=== PATIENT | female | born 1945 | race Caucasian/White ===

== ENCOUNTER 2017-06-30 10:38 | Emergency (ER) | payer MEDICARE ==
[~2017-06-30] VITALS: Ht 157.5 cm; Wt 52.8 kg
[~2017-06-30 10:38] MED LIST: ASPI-845 PO; ATOR40TA PO; FURO20TA4 PO; ISOS30TA6 PO; METO-539 PO; NITR0.4T SL; PANT20TA3 PO; POTA10TA36 PO; RANO500T3 PO; ZOL50T PO
[2017-06-30 11:25] LABS: BASOPHILS % (AUTO) 0.3 % (0-1); EOSINOPHILS # (AUTO) 0.4 X10'3 (0-0.9); EOSINOPHILS % (AUTO) 3.8 % (0-6); HEMATOCRIT 38.7 % (35.0-45.0); HEMOGLOBIN 12.6 g/dl (12.0-16.0); LYMPHOCYTES # (AUTO) 1.5 X10'3 (1.1-4.8); LYMPHOCYTES % (AUTO) 14.5 % (21-51); MEAN CORPUSCULAR HEMOGLOBIN 25.4 PG (27.0-31.0); MEAN CORPUSCULAR HGB CONC 32.5 % (33.0-36.5); MEAN CORPUSCULAR VOLUME 78.1 FL (78-98); MEAN PLATELET VOLUME 8.6 FL (7.4-10.4); MONOCYTES # (AUTO) 0.9 X10'3 (0-0.9); MONOCYTES % (AUTO) 8.6 % (2-12); NEUTROPHILS # (AUTO) 7.4 X10'3 (1.8-7.7); NEUTROPHILS % (AUTO) 72.8 % (42-75); PLATELET COUNT 279 X10'3 (140-440); RED BLOOD COUNT 4.95 X10'6 (4.20-5.60); RED CELL DISTRIBUTION WIDTH 16.6 % (11.5-14.5); WHITE BLOOD COUNT 10.2 X10'3 (4.5-11.0)
[2017-06-30 11:35] LABS: PARTIAL THROMBOPLASTIN TIME 27 SECONDS (22-32); PROTHROMBIN TIME 10.5 SECONDS (9.0-12.0)
[2017-06-30 11:40] LABS: ALANINE AMINOTRANSFERASE 40 U/L (12-78); ALBUMIN 3.9 G/DL (3.4-5.0); ALBUMIN/GLOBULIN RATIO 0.8 (1.1-1.5); ALKALINE PHOSPHATASE 108 IU/L (46-116); ANION GAP 10 (8-16); ASPARTATE AMINO TRANSFERASE 38 U/L (10-37); BILIRUBIN,TOTAL 0.7 MG/DL (0.1-1.0); BLOOD UREA NITROGEN 18 MG/DL (7-18); CALCIUM 9.6 MG/DL (8.5-10.1); CHLORIDE 103 MMOL/L (99-107); GLUCOSE 117 MG/DL (70-104); POTASSIUM 3.7 MMOL/L (3.5-5.1); SODIUM 142 MMOL/L (135-145); TOTAL CARBON DIOXIDE 29.2 MMOL/L (24-32); TOTAL PROTEIN 8.5 G/DL (6.4-8.2); eGFR 62 ML/MIN
[2017-06-30] MEDS ORDERED: iohexol 350MG/ML 100ml bottle IV ONE (12:42)
[2017-06-30] MEDS ORDERED: HYDROcodone/acetaminophen 5mg/325mg tablet PO ONE (17:35)
[2017-06-30 18:41] LABS: CLARITY,URINE CLEAR (Clear); COLOR,URINE YELLOW (Yellow); GLUCOSE, URINE NEGATIVE (Neg); KETONES,URINE NEGATIVE (Neg); LEUKOCYTE ESTERASE ,URINE NEGATIVE (Neg); NITRITES, URINE NEGATIVE (Neg); OCCULT BLOOD,URINE NEGATIVE (Neg); PH,URINE 5.5 (4.8-8.0); PROTEIN,URINE NEGATIVE (Neg)
[2017-06-30 18:46] LABS: UA COLLECTION TYPE CLN CATCH MIDSTREAM
[2017-06-30 19:20] VITALS: BP 129/58
== END 2017-06-30 19:19 | disposition home or self-care (01) ==
LOC: ER 10:39
DX: R07.89 Other chest pain (principal); R10.31 Right lower quadrant pain; R10.32 Left lower quadrant pain; R06.02 Shortness of breath; I25.10 Atherosclerotic heart disease of native coronary artery without angina pectoris; E78.00 Pure hypercholesterolemia, unspecified; I10 Essential (primary) hypertension; I25.2 Old myocardial infarction; F12.10 Cannabis abuse, uncomplicated; Z98.62 Peripheral vascular angioplasty status; Z95.1 Presence of aortocoronary bypass graft; Z79.82 Long term (current) use of aspirin; Z79.899 Other long term (current) drug therapy
CPT/HCPCS: 36415; 71045; 71275; 74174; 80053; 81003; 84484; 85025; 85610; 85730; 93005; 99285; J7030; Q9967

== ENCOUNTER 2018-10-16 07:56 | Inpatient (IN) | payer MEDICARE ==
[~2018-10-16] VITALS: Ht 160 cm; Wt 57.6 kg
[2018-10-16] MEDS ORDERED: aspirin 81mg tab.chew PO ONE (08:00)
--- NOTE | 2018-10-16 08:17 | NUR ---
radiology at bedside for chest xray now per orders
[2018-10-16 08:28] LABS: BASOPHILS % (AUTO) 0.5 % (0-1); EOSINOPHILS # (AUTO) 0.2 X10'3 (0-0.9); EOSINOPHILS % (AUTO) 2.2 % (0-6); HEMATOCRIT 35.7 % (35.0-45.0); HEMOGLOBIN 11.7 g/dl (12.0-16.0); LYMPHOCYTES # (AUTO) 1.5 X10'3 (1.1-4.8); LYMPHOCYTES % (AUTO) 16.6 % (21-51); MEAN CORPUSCULAR HEMOGLOBIN 25.6 PG (27.0-31.0); MEAN CORPUSCULAR HGB CONC 32.9 g/dL (33.0-36.5); MEAN PLATELET VOLUME 8.8 FL (7.4-10.4); MONOCYTES # (AUTO) 0.8 X10'3 (0-0.9); MONOCYTES % (AUTO) 8.6 % (2-12); NEUTROPHILS # (AUTO) 6.5 X10'3 (1.8-7.7); NEUTROPHILS % (AUTO) 72.1 % (42-75); PLATELET COUNT 207 X10'3 (140-440); RED BLOOD COUNT 4.58 X10'6 (4.20-5.60); RED CELL DISTRIBUTION WIDTH 15.4 % (11.5-14.5); WHITE BLOOD COUNT 9.1 X10'3 (4.5-11.0)
[2018-10-16] MEDS ORDERED: ASPI-611 PO (08:43)
[2018-10-16] MEDS ORDERED: UBID100C16 PO (08:43)
[2018-10-16] MEDS ORDERED: ATOR80TA PO (08:43)
[2018-10-16 08:44] LABS: ALANINE AMINOTRANSFERASE 21 U/L (12-78); ALBUMIN 3.6 G/DL (3.4-5.0); ALBUMIN/GLOBULIN RATIO 1.1 (1.1-1.5); ALKALINE PHOSPHATASE 135 IU/L (46-116); ANION GAP 10 (8-16); ASPARTATE AMINO TRANSFERASE 17 U/L (10-37); BILIRUBIN,TOTAL 0.5 MG/DL (0.1-1.0); BLOOD UREA NITROGEN 20 MG/DL (7-18); BUN/CREATININE RATIO 24.1 (6.6-38.0); CALCIUM 8.5 MG/DL (8.5-10.1); CHLORIDE 106 MMOL/L (99-107); CREATININE 0.83 MG/DL (0.40-0.90); GLUCOSE 104 MG/DL (70-104); POTASSIUM 3.7 MMOL/L (3.5-5.1); SODIUM 140 MMOL/L (135-145); TOTAL CARBON DIOXIDE 24.5 MMOL/L (24-32); eGFR 68 ML/MIN
--- NOTE | 2018-10-16 08:45 | NUR ---
DR MARTINEZ NOTIFIED OF PT ANXIETY, ORDERS TO FOLLOW.
[2018-10-16 08:55] LABS: MAGNESIUM 1.7 MG/DL (1.5-2.4)
[2018-10-16] MEDS ORDERED: LORazepam 0.5 MG tablet PO PRN (08:55)
--- NOTE | 2018-10-16 09:49 | NUR ---
PT IS SLEEPING ON LEFT SIDE, RESPIRATIONS SPONTANEOUS, EVEN AND UNLABORED, NO S/S OF PAIN OR DISTRESS, PT AWAITING HOSPITALIST EVALUATION FOR ADMISSION AT THIS TIME.
--- NOTE | 2018-10-16 09:58 | NUR ---
PT AMBULATORY TO THE BATHROOM WITH STEADY GAIT PER REQUEST, PT PROVIDING URINE SAMPLE TO SEND TO LAB IF NEEDED.
[2018-10-16] MEDS ORDERED: potassium Cl 20 mEq SR tablet PO PRN ×2 (10:20)
[2018-10-16] MEDS ORDERED: magnesium Cl slow-release 64mg tablet PO PRN (10:20)
[2018-10-16] MEDS ORDERED: magnesium 4gm in 100ml NS 100 ML IV PRN (10:20)
[2018-10-16] MEDS ORDERED: ondansetron/PF 4mg/2ml inj IV PRN (10:20)
[2018-10-16] MEDS ORDERED: morphine 2 MG/ML inj. syringe IV PRN (10:20)
[2018-10-16] MEDS ORDERED: potassium Cl 40MEQ/NS 500ml 500 ML IV PRN ×2 (10:20)
[2018-10-16] MEDS ORDERED: magnesium 2GM in 50ml NS 50 ML IV PRN (10:20)
--- NOTE | 2018-10-16 11:13 | NUR ---
received report from Eda in the ER. Pt is stable and A & O x3
[2018-10-16] MEDS ORDERED: MELA3TAB PO (11:19)
--- NOTE | 2018-10-16 11:46 | NUR ---
Patient in room [facility]. I have received report from Shirley CARRANZA and had the opportunity to ask questions and assume patient care.
[2018-10-16 11:54] VITALS: BP 140/79
[2018-10-16] MEDS ORDERED: metoprolol tartrate 1mg/ml inj IV PRN (13:45)
[2018-10-16] MEDS ORDERED: nitroGLYCERIN 0.4mg SUBLingual tab SL PRN ×2 (13:45→13:50)
[2018-10-16] MEDS ORDERED: aminophylline 250mg/10ml inj. IV PRN (13:45)
[2018-10-16] MEDS ORDERED: regadenoson 0.4mg/5ml syringe IV PRN (13:45)
[2018-10-16] MEDS: sertraline 50mg tablet PO SCH (14:48)
[2018-10-16] MEDS: furosemide 20MG tablet PO SCH (14:48)
[2018-10-16] MEDS: metoprolol succinate 25mg (24-HOUR) SR. Tablet PO SCH (14:49)
--- NOTE | 2018-10-16 18:15 | NUR ---
Received report from TERE Saucedo. Patient is awake and alert on room air, in no apparent distress. Call light and items of frequent use within reach. Will continue to monitor.
--- NOTE | 2018-10-16 18:29 | NUR ---
Problems reprioritized. Patient report given, questions answered & plan of care reviewed with jerrod CARRANZA. restful shift for patient no report of chest pain. VSS.
[2018-10-16] MEDS: heparin, porcine 5000 units/ml vial SQ SCH (19:35)
[2018-10-16 20:00] VITALS: BP 119/68
[2018-10-16] MEDS: atorvastatin 20mg tablet PO SCH (20:44)
[2018-10-16] MEDS: Melatonin 3mg tablet PO SCH (20:47)
[2018-10-16] MEDS ORDERED: non-formulary drug (Atorvastatin Calcium* (Lipitor*) 1 TABLET) PO SCH (21:00)
[2018-10-17] VITALS (17 sets, daily range): BP systolic 123–205; BP diastolic 64–114
[2018-10-17 04:55] LABS: BASOPHILS % (AUTO) 0.6 % (0-1); EOSINOPHILS # (AUTO) 0.3 X10'3 (0-0.9); EOSINOPHILS % (AUTO) 3.6 % (0-6); HEMATOCRIT 33.3 % (35.0-45.0); LYMPHOCYTES # (AUTO) 1.5 X10'3 (1.1-4.8); LYMPHOCYTES % (AUTO) 20.4 % (21-51); MEAN CORPUSCULAR HEMOGLOBIN 25.7 PG (27.0-31.0); MEAN CORPUSCULAR HGB CONC 33.1 g/dL (33.0-36.5); MEAN CORPUSCULAR VOLUME 77.6 FL (78-98); MEAN PLATELET VOLUME 9.2 FL (7.4-10.4); MONOCYTES # (AUTO) 0.7 X10'3 (0-0.9); MONOCYTES % (AUTO) 10.1 % (2-12); NEUTROPHILS # (AUTO) 4.7 X10'3 (1.8-7.7); NEUTROPHILS % (AUTO) 65.3 % (42-75); PLATELET COUNT 182 X10'3 (140-440); RED BLOOD COUNT 4.29 X10'6 (4.20-5.60); RED CELL DISTRIBUTION WIDTH 15.4 % (11.5-14.5); WHITE BLOOD COUNT 7.3 X10'3 (4.5-11.0)
[2018-10-17 05:05] LABS: ALBUMIN 3.2 G/DL (3.4-5.0); ANION GAP 7 (8-16); BLOOD UREA NITROGEN 19 MG/DL (7-18); BUN/CREATININE RATIO 28.8 (6.6-38.0); CALCIUM 8.7 MG/DL (8.5-10.1); CHLORIDE 106 MMOL/L (99-107); CREATININE 0.66 MG/DL (0.40-0.90); GLUCOSE 101 MG/DL (70-104); MAGNESIUM 1.9 MG/DL (1.5-2.4); POTASSIUM 3.7 MMOL/L (3.5-5.1); SODIUM 140 MMOL/L (135-145); TOTAL CARBON DIOXIDE 26.9 MMOL/L (24-32); eGFR 88 ML/MIN
--- NOTE | 2018-10-17 06:35 | NUR ---
Patient in room [facility]. I have received report from TERE Calloway and had the opportunity to ask questions and assume patient care.
--- NOTE | 2018-10-17 06:36 | NUR ---
Problems reprioritized. Patient report given, questions answered & plan of care reviewed with TERE Ng.
[2018-10-17] MEDS: K and/or MAG REPLACEMENT MC SCH (07:46)
[2018-10-17] MEDS: furosemide 20MG tablet PO SCH (07:47)
[2018-10-17] MEDS: metoprolol succinate 25mg (24-HOUR) SR. Tablet PO SCH (07:47)
[2018-10-17] MEDS: pantoprazole 40mg Tablet.DR PO SCH (07:53)
[2018-10-17] MEDS: aspirin 81mg tablet.DR PO SCH (07:54)
[2018-10-17] MEDS: potassium chloride 10mEq ER tablet PO SCH (07:54)
[2018-10-17] MEDS: sertraline 50mg tablet PO SCH (07:55)
[2018-10-17] MEDS ORDERED: non-formulary drug (Aspirin (Aspir 81) 1 TAB) PO SCH (08:00)
[2018-10-17] MEDS ORDERED: POTASSIUM CHLORIDE 10 MEQ PO SCH (08:00)
[2018-10-17] MEDS ORDERED: non-formulary drug (Pantoprazole Sodium (Protonix) 1 TAB) PO SCH (08:00)
[2018-10-17] MEDS: heparin, porcine 5000 units/ml vial SQ SCH ×2 (08:19→20:42)
[2018-10-17] MEDS ORDERED: regadenoson 0.4mg/5ml syringe IV ONE (09:22)
[2018-10-17] MEDS ORDERED: aminophylline inj. 10 ML IV ONE (09:22)
--- NOTE | 2018-10-17 18:10 | NUR ---
Patient in room [facility]. I have received report from TERE Ng and had the opportunity to ask questions and assume patient care.
--- NOTE | 2018-10-17 18:10 | NUR ---
Problems reprioritized. Patient report given, questions answered & plan of care reviewed with TERE Dinero.
[2018-10-17] MEDS: Melatonin 3mg tablet PO SCH (20:41)
[2018-10-17] MEDS: atorvastatin 20mg tablet PO SCH (20:41)
--- NOTE | 2018-10-17 22:57 | NUR ---
Problems reprioritized. Patient report given, questions answered & plan of care reviewed with Ethel Shukla.
--- NOTE | 2018-10-17 23:01 | NUR ---
Patient in room [facility]. I have received report from TERE Dinero and had the opportunity to ask questions and assume patient care. Addendum: 10/17/18 at 2302 by Mandy Portillo RN Amended: Links added.
[2018-10-18 00:28] VITALS: BP 136/55
[2018-10-18 05:26] LABS: BASOPHILS % (AUTO) 0.4 % (0-1); EOSINOPHILS # (AUTO) 0.3 X10'3 (0-0.9); EOSINOPHILS % (AUTO) 3.1 % (0-6); HEMATOCRIT 33.9 % (35.0-45.0); HEMOGLOBIN 11.1 g/dl (12.0-16.0); LYMPHOCYTES # (AUTO) 1.5 X10'3 (1.1-4.8); LYMPHOCYTES % (AUTO) 18.6 % (21-51); MEAN CORPUSCULAR HEMOGLOBIN 25.1 PG (27.0-31.0); MEAN CORPUSCULAR HGB CONC 32.7 g/dL (33.0-36.5); MEAN CORPUSCULAR VOLUME 76.8 FL (78-98); MEAN PLATELET VOLUME 9.7 FL (7.4-10.4); MONOCYTES # (AUTO) 0.8 X10'3 (0-0.9); MONOCYTES % (AUTO) 10.4 % (2-12); NEUTROPHILS # (AUTO) 5.5 X10'3 (1.8-7.7); NEUTROPHILS % (AUTO) 67.5 % (42-75); PLATELET COUNT 197 X10'3 (140-440); RED BLOOD COUNT 4.42 X10'6 (4.20-5.60); RED CELL DISTRIBUTION WIDTH 15.4 % (11.5-14.5); WHITE BLOOD COUNT 8.2 X10'3 (4.5-11.0)
[2018-10-18 05:31] LABS: ALBUMIN 3.3 G/DL (3.4-5.0); ANION GAP 9 (8-16); BLOOD UREA NITROGEN 20 MG/DL (7-18); BUN/CREATININE RATIO 25.6 (6.6-38.0); CALCIUM 8.8 MG/DL (8.5-10.1); CHLORIDE 106 MMOL/L (99-107); CREATININE 0.78 MG/DL (0.40-0.90); GLUCOSE 97 MG/DL (70-104); SODIUM 140 MMOL/L (135-145); TOTAL CARBON DIOXIDE 24.6 MMOL/L (24-32); eGFR 73 ML/MIN
[2018-10-18 05:32] LABS: POTASSIUM 3.8 MMOL/L (3.5-5.1)
--- NOTE | 2018-10-18 06:15 | NUR ---
Patient in room [facility]. I have received report from TERE Shukla and had the opportunity to ask questions and assume patient care. Patient resting comfortably at this time. Call light and items of frequent use in reach of patient.
--- NOTE | 2018-10-18 06:21 | NUR ---
Problems reprioritized. Patient report given, questions answered & plan of care reviewed with TERE Millan. Addendum: 10/18/18 at 0622 by Mandy Portillo RN Amended: Links added.
[2018-10-18 07:00] VITALS: BP 138/51
[2018-10-18] MEDS: K and/or MAG REPLACEMENT MC SCH (07:45)
[2018-10-18] MEDS: pantoprazole 40mg Tablet.DR PO SCH (07:57)
[2018-10-18] MEDS: aspirin 81mg tablet.DR PO SCH (07:59)
[2018-10-18] MEDS: potassium chloride 10mEq ER tablet PO SCH (08:00)
[2018-10-18] MEDS: sertraline 50mg tablet PO SCH (08:00)
[2018-10-18] MEDS: heparin, porcine 5000 units/ml vial SQ SCH ×2 (08:00→20:18)
[2018-10-18] MEDS: furosemide 20MG tablet PO SCH (08:00)
[2018-10-18] MEDS: metoprolol succinate 25mg (24-HOUR) SR. Tablet PO SCH ×2 (08:00→20:18)
[2018-10-18 11:00] VITALS: BP 128/86
[2018-10-18] MEDS: acetaminophen 325mg tablet PO PRN (16:30)
--- NOTE | 2018-10-18 18:10 | NUR ---
Problems reprioritized. Patient report given, questions answered & plan of care reviewed with TERE Shukla.
--- NOTE | 2018-10-18 18:33 | NUR ---
Patient in room [facility]. I have received report from TERE Ng and had the opportunity to ask questions and assume patient care. Addendum: 10/18/18 at 1833 by Mandy Portillo RN Amended: Links added.
[2018-10-18 20:00] VITALS: BP 147/70
[2018-10-18] MEDS: Melatonin 3mg tablet PO SCH (21:09)
[2018-10-18] MEDS: atorvastatin 20mg tablet PO SCH (21:09)
[2018-10-19] VITALS: BP 148/62
[2018-10-19 06:39] LABS: BASOPHILS % (AUTO) 0.4 % (0-1); EOSINOPHILS # (AUTO) 0.2 X10'3 (0-0.9); EOSINOPHILS % (AUTO) 2.6 % (0-6); HEMATOCRIT 35.7 % (35.0-45.0); HEMOGLOBIN 11.6 g/dl (12.0-16.0); LYMPHOCYTES # (AUTO) 1.1 X10'3 (1.1-4.8); LYMPHOCYTES % (AUTO) 13.3 % (21-51); MEAN CORPUSCULAR HGB CONC 32.4 g/dL (33.0-36.5); MEAN CORPUSCULAR VOLUME 76.9 FL (78-98); MEAN PLATELET VOLUME 9.1 FL (7.4-10.4); MONOCYTES # (AUTO) 0.9 X10'3 (0-0.9); MONOCYTES % (AUTO) 10.4 % (2-12); NEUTROPHILS # (AUTO) 6.2 X10'3 (1.8-7.7); NEUTROPHILS % (AUTO) 73.3 % (42-75); PLATELET COUNT 214 X10'3 (140-440); RED BLOOD COUNT 4.64 X10'6 (4.20-5.60); RED CELL DISTRIBUTION WIDTH 15.5 % (11.5-14.5); WHITE BLOOD COUNT 8.5 X10'3 (4.5-11.0)
--- NOTE | 2018-10-19 06:39 | NUR ---
Problems reprioritized. Patient report given, questions answered & plan of care reviewed with TERE ROBERTSON.
[2018-10-19 06:54] LABS: ALBUMIN 3.5 G/DL (3.4-5.0); ANION GAP 7 (8-16); BLOOD UREA NITROGEN 21 MG/DL (7-18); BUN/CREATININE RATIO 28.4 (6.6-38.0); CALCIUM 9.5 MG/DL (8.5-10.1); CHLORIDE 105 MMOL/L (99-107); CREATININE 0.74 MG/DL (0.40-0.90); GLUCOSE 93 MG/DL (70-104); MAGNESIUM 2.1 MG/DL (1.5-2.4); POTASSIUM 3.8 MMOL/L (3.5-5.1); SODIUM 138 MMOL/L (135-145); TOTAL CARBON DIOXIDE 26.5 MMOL/L (24-32); eGFR 77 ML/MIN
--- NOTE | 2018-10-19 07:00 | NUR ---
Patient in room [facility]. I have received report from Gayla CARRANZA and had the opportunity to ask questions and assume patient care.
[2018-10-19] MEDS: K and/or MAG REPLACEMENT MC SCH (07:19)
[2018-10-19] MEDS: sertraline 50mg tablet PO SCH (07:23)
[2018-10-19] MEDS: aspirin 81mg tablet.DR PO SCH (07:23)
[2018-10-19] MEDS: isosorbide mononitrate 30mg tab.SR.24H PO SCH (07:24)
[2018-10-19] MEDS: pantoprazole 40mg Tablet.DR PO SCH (07:24)
[2018-10-19] MEDS: furosemide 20MG tablet PO SCH (07:24)
[2018-10-19] MEDS: potassium chloride 10mEq ER tablet PO SCH (07:24)
[2018-10-19] MEDS: heparin, porcine 5000 units/ml vial SQ SCH ×2 (07:24→20:17)
[2018-10-19] MEDS: metoprolol succinate 25mg (24-HOUR) SR. Tablet PO SCH ×2 (07:29→20:17)
[2018-10-19 07:31] VITALS: BP 142/55
--- NOTE | 2018-10-19 10:10 | NUR ---
Dr. Wilson in to see patient. stated pt prefers medical management at this time. stated he will inform Dr. Jay.
[2018-10-19 11:28] VITALS: BP 99/50
[2018-10-19 13:16] VITALS: BP 145/52
[2018-10-19] MEDS: acetaminophen 325mg tablet PO PRN ×2 (13:24→19:17)
--- NOTE | 2018-10-19 18:05 | NUR ---
Problems reprioritized. Patient report given, questions answered & plan of care reviewed with Gayla CARRANZA.
[2018-10-19 20:00] VITALS: BP 117/54
[2018-10-19] MEDS: atorvastatin 20mg tablet PO SCH (21:05)
[2018-10-19] MEDS: Melatonin 3mg tablet PO SCH (21:05)
[2018-10-20] VITALS: BP 108/61
[2018-10-20 06:08] LABS: HEMATOCRIT 35.2 % (35.0-45.0); HEMOGLOBIN 11.7 g/dl (12.0-16.0); MONOCYTES # (AUTO) 1.2 X10'3 (0-0.9); RED CELL DISTRIBUTION WIDTH 15.4 % (11.5-14.5)
[2018-10-20 06:10] LABS: BASOPHILS % (AUTO) 0.3 % (0-1); EOSINOPHILS # (AUTO) 0.2 X10'3 (0-0.9); EOSINOPHILS % (AUTO) 1.9 % (0-6); LYMPHOCYTES # (AUTO) 1.5 X10'3 (1.1-4.8); LYMPHOCYTES % (AUTO) 15.8 % (21-51); MEAN CORPUSCULAR HEMOGLOBIN 25.5 PG (27.0-31.0); MEAN CORPUSCULAR HGB CONC 33.3 g/dL (33.0-36.5); MEAN CORPUSCULAR VOLUME 76.6 FL (78-98); MEAN PLATELET VOLUME 9.3 FL (7.4-10.4); NEUTROPHILS # (AUTO) 6.8 X10'3 (1.8-7.7); PLATELET COUNT 207 X10'3 (140-440); WHITE BLOOD COUNT 9.7 X10'3 (4.5-11.0)
--- NOTE | 2018-10-20 06:16 | NUR ---
Problems reprioritized. Patient report given, questions answered & plan of care reviewed with TERE ROBERTSON.
--- NOTE | 2018-10-20 06:20 | NUR ---
Patient in room [facility]. I have received report from Gayla CARRANZA and had the opportunity to ask questions and assume patient care.
[2018-10-20 06:21] LABS: ALBUMIN 3.6 G/DL (3.4-5.0); ANION GAP 7 (8-16); BLOOD UREA NITROGEN 17 MG/DL (7-18); BUN/CREATININE RATIO 20.2 (6.6-38.0); CALCIUM 9.5 MG/DL (8.5-10.1); CHLORIDE 105 MMOL/L (99-107); CREATININE 0.84 MG/DL (0.40-0.90); GLUCOSE 105 MG/DL (70-104); MAGNESIUM 1.9 MG/DL (1.5-2.4); POTASSIUM 3.9 MMOL/L (3.5-5.1); SODIUM 138 MMOL/L (135-145); TOTAL CARBON DIOXIDE 25.8 MMOL/L (24-32); eGFR 67 ML/MIN
[2018-10-20 07:19] LABS: ELLIPTOCYTES 1+; PLATELET ESTIMATE NORMAL
[2018-10-20] MEDS: K and/or MAG REPLACEMENT MC SCH (07:25)
[2018-10-20 07:26] VITALS: BP 114/60
[2018-10-20] MEDS: potassium chloride 10mEq ER tablet PO SCH (07:31)
[2018-10-20] MEDS: heparin, porcine 5000 units/ml vial SQ SCH (07:32)
[2018-10-20] MEDS: sertraline 50mg tablet PO SCH (07:32)
[2018-10-20] MEDS: aspirin 81mg tablet.DR PO SCH (07:32)
[2018-10-20] MEDS: pantoprazole 40mg Tablet.DR PO SCH (07:32)
[2018-10-20] MEDS: metoprolol succinate 25mg (24-HOUR) SR. Tablet PO SCH ×2 (07:32→20:21)
[2018-10-20] MEDS: isosorbide mononitrate 30mg tab.SR.24H PO SCH (07:32)
[2018-10-20] MEDS: furosemide 20MG tablet PO SCH (07:32)
[2018-10-20 07:35] LABS: BURR CELLS FEW
--- NOTE | 2018-10-20 11:30 | NUR ---
Dr. Jay in to see patient. IV to right arm has redness and tenderness near IV site. MD stated to remove IV and to place another IV in other arm. also stated she would order a scan to r/o DVT to right arm. Will continue to monitor.
[2018-10-20 12:46] VITALS: BP 116/71
--- NOTE | 2018-10-20 17:59 | NUR ---
Dr. Jay paged regarding venous ultrasound results, awaiting call back.
[2018-10-20 18:00] VITALS: BP 114/60
--- NOTE | 2018-10-20 18:08 | NUR ---
Patient in room [facility]. I have received report from TERE Veras and had the opportunity to ask questions and assume patient care. In no apparent distress, resting comfortably on room air. Call light and items of frequent use within reach. Will continue to monitor.
--- NOTE | 2018-10-20 18:29 | NUR ---
Problems reprioritized. Patient report given, questions answered & plan of care reviewed with Elli CARRANZA.
--- NOTE | 2018-10-20 18:32 | NUR ---
MD aware of venous ultrasound results. MD inputted orders.
[2018-10-20] MEDS: apixaban 5mg tablet PO SCH (20:20)
[2018-10-20] MEDS: atorvastatin 20mg tablet PO SCH (20:20)
[2018-10-20] MEDS: Melatonin 3mg tablet PO SCH (20:21)
[2018-10-20] MEDS: acetaminophen 325mg tablet PO PRN (20:31)
[2018-10-21] VITALS: BP 116/61
--- NOTE | 2018-10-21 06:10 | NUR ---
Problems reprioritized. Patient report given, questions answered & plan of care reviewed with TERE Musa. Addendum: 10/21/18 at 0618 by Elli Menjivar RN *shala CARRANZA* Problems reprioritized. Patient report given, questions answered & plan of care reviewed with TERE Caputo
[2018-10-21 06:22] LABS: BASOPHILS % (AUTO) 0.4 % (0-1); EOSINOPHILS % (AUTO) 0.1 % (0-6); HEMATOCRIT 34.7 % (35.0-45.0); HEMOGLOBIN 11.4 g/dl (12.0-16.0); LYMPHOCYTES # (AUTO) 0.5 X10'3 (1.1-4.8); LYMPHOCYTES % (AUTO) 5.8 % (21-51); MEAN CORPUSCULAR HEMOGLOBIN 25.5 PG (27.0-31.0); MEAN CORPUSCULAR VOLUME 77.3 FL (78-98); MEAN PLATELET VOLUME 9.3 FL (7.4-10.4); MONOCYTES # (AUTO) 0.8 X10'3 (0-0.9); MONOCYTES % (AUTO) 8.9 % (2-12); NEUTROPHILS # (AUTO) 7.3 X10'3 (1.8-7.7); NEUTROPHILS % (AUTO) 84.8 % (42-75); PLATELET COUNT 193 X10'3 (140-440); RED BLOOD COUNT 4.48 X10'6 (4.20-5.60); RED CELL DISTRIBUTION WIDTH 15.7 % (11.5-14.5); WHITE BLOOD COUNT 8.6 X10'3 (4.5-11.0)
--- NOTE | 2018-10-21 06:30 | NUR ---
Patient in room [facility]. I have received report from Dea and had the opportunity to ask questions and assume patient care. Addendum: 10/21/18 at 0930 by Patito Tyler RN Amended: Links added.
[2018-10-21 06:41] LABS: ALBUMIN 3.6 G/DL (3.4-5.0); ANION GAP 6 (8-16); BLOOD UREA NITROGEN 14 MG/DL (7-18); BUN/CREATININE RATIO 14.1 (6.6-38.0); CALCIUM 9.6 MG/DL (8.5-10.1); CHLORIDE 104 MMOL/L (99-107); CREATININE 0.99 MG/DL (0.40-0.90); GLUCOSE 119 MG/DL (70-104); POTASSIUM 4.1 MMOL/L (3.5-5.1); SODIUM 137 MMOL/L (135-145); TOTAL CARBON DIOXIDE 27.1 MMOL/L (24-32); eGFR 55 ML/MIN
[2018-10-21 07:00] VITALS: BP 142/61
[2018-10-21] MEDS: K and/or MAG REPLACEMENT MC SCH (07:02)
[2018-10-21] MEDS: aspirin 81mg tablet.DR PO SCH (08:26)
[2018-10-21] MEDS: sertraline 50mg tablet PO SCH (08:26)
[2018-10-21] MEDS: metoprolol succinate 25mg (24-HOUR) SR. Tablet PO SCH (08:26)
[2018-10-21] MEDS: apixaban 5mg tablet PO SCH (08:26)
[2018-10-21] MEDS: furosemide 20MG tablet PO SCH (08:27)
[2018-10-21] MEDS: isosorbide mononitrate 30mg tab.SR.24H PO SCH (08:27)
[2018-10-21] MEDS: pantoprazole 40mg Tablet.DR PO SCH (08:27)
[2018-10-21] MEDS: potassium chloride 10mEq ER tablet PO SCH (08:27)
[2018-10-21] MEDS: acetaminophen 325mg tablet PO PRN (08:36)
[2018-10-21] MEDS ORDERED: ISOS30TA6 PO (10:11)
--- NOTE | 2018-10-21 11:50 | NUR ---
Initial: Pt admit w/ diastolic heart failure hx hyperlipidemia and HTN. Pt PO 100% heart healthy meals meeting needs. LBM 10/19. No nutrition concerns at this time. Addendum: 10/21/18 at [address] Amended: Links added.
== END 2018-10-21 13:14 | disposition home or self-care (01) | DRG 303 ==
LOC: ER 07:57 → EDBEDREQTM 10:42 → OBSVTOIN 11:26 → INTOOBSV 11:26 → SUR 3N 11:26
PROVIDERS: ADMIT Internal Medicine; ATTEND Family Medicine
PROC: 4A02XM4 Measurement of Cardiac Total Activity, External Approach (ICD-10-PCS; principal; 2018-10-17)
PROC: 3E033HZ Introduction of Radioactive Substance into Peripheral Vein, Percutaneous Approach (ICD-10-PCS; 2018-10-17)
DX: I25.10 Atherosclerotic heart disease of native coronary artery without angina pectoris (principal); I82.91 Chronic embolism and thrombosis of unspecified vein; I50.30 Unspecified diastolic (congestive) heart failure; E78.5 Hyperlipidemia, unspecified; I11.0 Hypertensive heart disease with heart failure; E78.00 Pure hypercholesterolemia, unspecified; F12.90 Cannabis use, unspecified, uncomplicated; I25.2 Old myocardial infarction; Z82.49 Family history of ischemic heart disease and other diseases of the circulatory system; Z82.3 Family history of stroke; Z82.41 Family history of sudden cardiac death; Z95.5 Presence of coronary angioplasty implant and graft; Z95.2 Presence of prosthetic heart valve
CPT/HCPCS: 36415; 71045; 78452; 80048; 80053; 83735; 83880; 84484; 85025; 87070; 93005; 93017; 93306; 93971; 99285; A9500; G0378; J0280; J1644; J2270

== ENCOUNTER 2020-06-23 19:53 | Emergency (ER) | payer MEDICARE ==
[~2020-06-23] VITALS: Ht 157.5 cm; Wt 54.0 kg
[~2020-06-23 19:53] MED LIST changes: +ASPI-611 PO; -ASPI-845 PO; -ATOR40TA PO; +ATOR80TA PO; +MELA3TAB39 PO; +PANT20TA18 PO; -PANT20TA3 PO; -RANO500T3 PO; +SERT-153 PO; +UBID100C16 PO; -ZOL50T PO
[2020-06-23 20:21] LABS: BASOPHILS % (AUTO) 0.5 % (0-1); EOSINOPHILS # (AUTO) 0.2 X10'3 (0-0.9); HEMATOCRIT 40.4 % (35.0-45.0); HEMOGLOBIN 13.1 g/dl (12.0-16.0); LYMPHOCYTES # (AUTO) 2.3 X10'3 (1.1-4.8); LYMPHOCYTES % (AUTO) 25.6 % (21-51); MEAN CORPUSCULAR HGB CONC 32.6 g/dL (33.0-36.5); MEAN CORPUSCULAR VOLUME 79.9 FL (78-98); MEAN PLATELET VOLUME 9.1 FL (7.4-10.4); MONOCYTES # (AUTO) 1.1 X10'3 (0-0.9); MONOCYTES % (AUTO) 12.5 % (2-12); NEUTROPHILS # (AUTO) 5.4 X10'3 (1.8-7.7); NEUTROPHILS % (AUTO) 59.4 % (42-75); PLATELET COUNT 206 X10'3 (140-440); RED BLOOD COUNT 5.05 X10'6 (4.20-5.60); RED CELL DISTRIBUTION WIDTH 17.3 % (11.5-14.5); WHITE BLOOD COUNT 9.1 X10'3 (4.5-11.0)
[2020-06-23 20:35] LABS: ALANINE AMINOTRANSFERASE 37 U/L (12-78); ALKALINE PHOSPHATASE 128 IU/L (46-116); ANION GAP 10 (8-16); ASPARTATE AMINO TRANSFERASE 24 U/L (10-37); BILIRUBIN,TOTAL 0.5 MG/DL (0.1-1.0); BLOOD UREA NITROGEN 14 MG/DL (7-18); BUN/CREATININE RATIO 15.1 (6.6-38.0); CALCIUM 10.1 MG/DL (8.5-10.1); CHLORIDE 103 MMOL/L (99-107); CREATININE 0.93 MG/DL (0.40-0.90); GLUCOSE 106 MG/DL (70-104); POTASSIUM 3.4 MMOL/L (3.5-5.1); SODIUM 142 MMOL/L (135-145); TOTAL CARBON DIOXIDE 28.6 MMOL/L (24-32); TOTAL PROTEIN 8.2 G/DL (6.4-8.2); eGFR 59 ML/MIN
[2020-06-23] MEDS: mag hydrox/Alum hydrox/simeth 30ml oral suspension PO ONE (23:10)
[2020-06-23] MEDS: LIDOcaine Viscous 15ml cup MM ONE (23:10)
[2020-06-23] MEDS: nitroGLYCERIN 0.2mg/hour patch TD ONE (23:11)
[2020-06-23 23:20] LABS: LIPASE 129 U/L (73-393); MAGNESIUM 2.1 MG/DL (1.5-2.4)
[2020-06-24 00:35] VITALS: BP 159/84
== END 2020-06-24 00:39 | disposition home or self-care (01) ==
LOC: ER 19:53
DX: R07.89 Other chest pain (principal); K21.9 Gastro-esophageal reflux disease without esophagitis; I25.10 Atherosclerotic heart disease of native coronary artery without angina pectoris; E78.00 Pure hypercholesterolemia, unspecified; I10 Essential (primary) hypertension; I25.2 Old myocardial infarction; F12.90 Cannabis use, unspecified, uncomplicated; Z98.890 Other specified postprocedural states; Z79.82 Long term (current) use of aspirin; Z79.899 Other long term (current) drug therapy
CPT/HCPCS: 36415; 71045; 80053; 83690; 83735; 83880; 84484; 85025; 93005; 99285

== ENCOUNTER 2020-12-14 11:16 | Day surgery (SDC) | payer MEDICARE ==
[2020-12-14] VITALS (14 sets, daily range): BP systolic 126–219; BP diastolic 62–132
[~2020-12-14] VITALS: Ht 157.5 cm; Wt 55.5 kg
[~2020-12-14 11:16] MED LIST changes: -ISOS30TA6 PO; +ISOS30TA84 PO
[2020-12-14] MEDS ORDERED: fentaNYL/PF 50MCG/1 ML 2ML syringe IV ONE (11:50)
[2020-12-14] MEDS ORDERED: MIDAZolam 1mg/ml 10ml vial IV ONE (11:50)
[2020-12-14] MEDS ORDERED: normal saline 1000ml 1,000 ML IV SCH (11:50)
[2020-12-14] MEDS ORDERED: LOSA25TA96 PO (12:03)
[2020-12-14] MEDS ORDERED: FERR-119 PO (12:03)
[2020-12-14] MEDS ORDERED: CALC-1215 PO (12:03)
[2020-12-14] MEDS ORDERED: NINT100C PO (12:03)
[2020-12-14] MEDS ORDERED: KRIL500C PO (12:03)
[2020-12-14] MEDS ORDERED: ISOS30TA84 PO (12:03)
[2020-12-14] MEDS ORDERED: MULT-1085 PO (12:03)
[2020-12-14 12:23] LABS: BASOPHILS % (AUTO) 0.3 % (0-1); EOSINOPHILS # (AUTO) 0.2 X10'3 (0-0.9); EOSINOPHILS % (AUTO) 2.7 % (0-6); HEMATOCRIT 40.7 % (35.0-45.0); HEMOGLOBIN 13.3 g/dl (12.0-16.0); LYMPHOCYTES # (AUTO) 1.6 X10'3 (1.1-4.8); LYMPHOCYTES % (AUTO) 22.1 % (21-51); MEAN CORPUSCULAR HEMOGLOBIN 26.9 PG (27.0-31.0); MEAN CORPUSCULAR HGB CONC 32.8 g/dL (33.0-36.5); MEAN PLATELET VOLUME 8.8 FL (7.4-10.4); MONOCYTES # (AUTO) 0.8 X10'3 (0-0.9); MONOCYTES % (AUTO) 10.4 % (2-12); NEUTROPHILS # (AUTO) 4.7 X10'3 (1.8-7.7); NEUTROPHILS % (AUTO) 64.5 % (42-75); PLATELET COUNT 211 X10'3 (140-440); RED BLOOD COUNT 4.96 X10'6 (4.20-5.60); RED CELL DISTRIBUTION WIDTH 15.4 % (11.5-14.5); WHITE BLOOD COUNT 7.4 X10'3 (4.5-11.0)
[2020-12-14 12:32] LABS: ALBUMIN 3.7 G/DL (3.4-5.0); ANION GAP 10 (8-16); BLOOD UREA NITROGEN 19 MG/DL (7-18); BUN/CREATININE RATIO 26.4 (6.6-38.0); CHLORIDE 107 MMOL/L (99-107); CREATININE 0.72 MG/DL (0.40-0.90); GLUCOSE 92 MG/DL (70-104); POTASSIUM 3.8 MMOL/L (3.5-5.1); SODIUM 141 MMOL/L (135-145); TOTAL CARBON DIOXIDE 24.5 MMOL/L (24-32); eGFR 79 ML/MIN
== END 2020-12-14 17:10 | disposition home or self-care (01) ==
LOC: SSTAY O 11:16
PROVIDERS: ATTEND Internal Medicine Interventional Cardiology
DX: I08.1 Rheumatic disorders of both mitral and tricuspid valves (principal); I10 Essential (primary) hypertension; I25.10 Atherosclerotic heart disease of native coronary artery without angina pectoris; E78.00 Pure hypercholesterolemia, unspecified; I25.2 Old myocardial infarction; J45.909 Unspecified asthma, uncomplicated; Z95.1 Presence of aortocoronary bypass graft; Z95.5 Presence of coronary angioplasty implant and graft; Z82.49 Family history of ischemic heart disease and other diseases of the circulatory system; Z82.3 Family history of stroke; Z83.49 Family history of other endocrine, nutritional and metabolic diseases
CPT/HCPCS: 36415; 80048; 85025; 93312; 93325; 94799; J2250; J3010; J7030

== ENCOUNTER 2021-06-02 16:55 | Emergency (ER) | payer MEDICARE ==
[~2021-06-02] VITALS: Ht 157.5 cm; Wt 52.0 kg
[~2021-06-02 16:55] MED LIST changes: +CALC-1215 PO; +FERR-119 PO; +KRIL500C PO; +LOSA25TA96 PO; -MELA3TAB39 PO; +MULT-1085 PO; +NINT100C PO; -PANT20TA18 PO; -POTA10TA36 PO; +POTA10TA37 PO
[2021-06-02 17:46] LABS: BASOPHILS % (AUTO) 0.3 % (0-1); EOSINOPHILS # (AUTO) 0.3 X10'3 (0-0.9); EOSINOPHILS % (AUTO) 2.7 % (0-6); HEMATOCRIT 38.2 % (35.0-45.0); HEMOGLOBIN 12.5 g/dl (12.0-16.0); LYMPHOCYTES # (AUTO) 3.3 X10'3 (1.1-4.8); LYMPHOCYTES % (AUTO) 33.9 % (21-51); MEAN CORPUSCULAR HEMOGLOBIN 28.8 PG (27.0-31.0); MEAN CORPUSCULAR HGB CONC 32.7 g/dL (33.0-36.5); MEAN CORPUSCULAR VOLUME 88.1 FL (78-98); MEAN PLATELET VOLUME 8.1 FL (7.4-10.4); MONOCYTES % (AUTO) 9.8 % (2-12); NEUTROPHILS # (AUTO) 5.2 X10'3 (1.8-7.7); NEUTROPHILS % (AUTO) 53.3 % (42-75); PLATELET COUNT 237 X10'3 (140-440); RED BLOOD COUNT 4.34 X10'6 (4.20-5.60); RED CELL DISTRIBUTION WIDTH 18.4 % (11.5-14.5); WHITE BLOOD COUNT 9.7 X10'3 (4.5-11.0)
[2021-06-02 18:05] LABS: ALANINE AMINOTRANSFERASE 37 U/L (12-78); ALBUMIN 2.5 G/DL (3.4-5.0); ALBUMIN/GLOBULIN RATIO 0.5 (1.1-1.5); ALKALINE PHOSPHATASE 166 IU/L (46-116); ANION GAP 10 (8-16); ASPARTATE AMINO TRANSFERASE 44 U/L (10-37); BILIRUBIN,TOTAL 0.5 MG/DL (0.1-1.0); BLOOD UREA NITROGEN 8 MG/DL (7-18); BUN/CREATININE RATIO 9.3 (6.6-38.0); CALCIUM 8.5 MG/DL (8.5-10.1); CHLORIDE 106 MMOL/L (99-107); CREATININE 0.86 MG/DL (0.40-0.90); GLUCOSE 108 MG/DL (70-104); SODIUM 143 MMOL/L (135-145); TOTAL CARBON DIOXIDE 27.5 MMOL/L (24-32); TOTAL PROTEIN 7.3 G/DL (6.4-8.2); eGFR 65 ML/MIN
[2021-06-02] MEDS ORDERED: ketorolac trometh. 30mg/ml inj. IV ONE (18:20)
[2021-06-02] MEDS ORDERED: proCHLORperazine 10 MG/2 ml inj IV ONE (18:20)
[2021-06-02] MEDS ORDERED: normal saline 1000ML IV soln IVB ONE (18:20)
[2021-06-02] MEDS ORDERED: potassium Cl 20 mEq SR tablet PO STA (18:32)
[2021-06-02] MEDS ORDERED: PROC-8 PO (19:21)
[2021-06-02 19:49] VITALS: BP 185/95
== END 2021-06-02 19:52 | disposition home or self-care (01) ==
LOC: ER 16:56
DX: R51.9 Headache, unspecified (principal); I10 Essential (primary) hypertension; R11.0 Nausea; I25.10 Atherosclerotic heart disease of native coronary artery without angina pectoris; E78.00 Pure hypercholesterolemia, unspecified; I25.2 Old myocardial infarction; F12.90 Cannabis use, unspecified, uncomplicated; Z98.890 Other specified postprocedural states; Z95.1 Presence of aortocoronary bypass graft; Z79.82 Long term (current) use of aspirin; Z79.899 Other long term (current) drug therapy
CPT/HCPCS: 36415; 70450; 71045; 80053; 83880; 84145; 84484; 85025; 93005; 96374; 96375; 99285; J0780; J1885; J7030

== ENCOUNTER 2021-09-27 14:23 | Emergency (ER) | payer MEDICARE ==
[~2021-09-27] VITALS: Ht 157.5 cm; Wt 53.2 kg
[~2021-09-27 14:23] MED LIST changes: +PROC-8 PO
[2021-09-27] MEDS ORDERED: metoprolol tartrate 1mg/ml inj IV ONE (15:10)
[2021-09-27] MEDS ORDERED: LORazepam 2 mg/ml vial IV ONE (15:10)
[2021-09-27 15:19] LABS: BASOPHILS % (AUTO) 0.4 % (0-1); EOSINOPHILS # (AUTO) 0.1 X10'3 (0-0.9); EOSINOPHILS % (AUTO) 1.3 % (0-6); HEMATOCRIT 43.4 % (35.0-45.0); LYMPHOCYTES # (AUTO) 2.6 X10'3 (1.1-4.8); MEAN CORPUSCULAR HEMOGLOBIN 27.1 PG (27.0-31.0); MEAN CORPUSCULAR HGB CONC 32.2 g/dL (33.0-36.5); MEAN CORPUSCULAR VOLUME 84.3 FL (78-98); MEAN PLATELET VOLUME 8.4 FL (7.4-10.4); MONOCYTES # (AUTO) 0.9 X10'3 (0-0.9); MONOCYTES % (AUTO) 9.2 % (2-12); NEUTROPHILS # (AUTO) 6.6 X10'3 (1.8-7.7); NEUTROPHILS % (AUTO) 64.1 % (42-75); PLATELET COUNT 295 X10'3 (140-440); RED BLOOD COUNT 5.15 X10'6 (4.20-5.60); RED CELL DISTRIBUTION WIDTH 16.9 % (11.5-14.5); WHITE BLOOD COUNT 10.2 X10'3 (4.5-11.0)
[2021-09-27 15:34] LABS: ALANINE AMINOTRANSFERASE 41 U/L (12-78); ALBUMIN 3.5 G/DL (3.4-5.0); ALBUMIN/GLOBULIN RATIO 0.7 (1.1-1.5); ALKALINE PHOSPHATASE 123 IU/L (46-116); ANION GAP 13 (8-16); ASPARTATE AMINO TRANSFERASE 32 U/L (10-37); BILIRUBIN,TOTAL 0.6 MG/DL (0.1-1.0); BLOOD UREA NITROGEN 14 MG/DL (7-18); BUN/CREATININE RATIO 12.2 (6.6-38.0); CALCIUM 9.3 MG/DL (8.5-10.1); CHLORIDE 105 MMOL/L (99-107); CREATININE 1.15 MG/DL (0.40-0.90); GLUCOSE 143 MG/DL (70-104); POTASSIUM 3.1 MMOL/L (3.5-5.1); SODIUM 142 MMOL/L (135-145); TOTAL CARBON DIOXIDE 24.3 MMOL/L (24-32); TOTAL PROTEIN 8.2 G/DL (6.4-8.2); eGFR 46 ML/MIN
[2021-09-27 15:37] LABS: APTT 37 SECONDS (22-32)
[2021-09-27] MEDS ORDERED: METO-539 PO (16:12)
[2021-09-27 16:31] VITALS: BP 111/71
== END 2021-09-27 16:35 | disposition home or self-care (01) ==
LOC: ER 14:23
DX: I48.20 Chronic atrial fibrillation, unspecified (principal); F41.9 Anxiety disorder, unspecified; R00.2 Palpitations; I25.10 Atherosclerotic heart disease of native coronary artery without angina pectoris; E78.00 Pure hypercholesterolemia, unspecified; I10 Essential (primary) hypertension; I25.2 Old myocardial infarction; F32.A Depression, unspecified; F12.90 Cannabis use, unspecified, uncomplicated; Z86.711 Personal history of pulmonary embolism; Z98.890 Other specified postprocedural states; Z95.1 Presence of aortocoronary bypass graft; Z79.82 Long term (current) use of aspirin; Z79.899 Other long term (current) drug therapy
CPT/HCPCS: 36415; 71045; 80053; 83880; 84484; 85025; 85610; 85730; 93005; 96374; 96375; 99285; J2060; J3490

== ENCOUNTER 2022-11-09 08:59 | Emergency (ER) | payer MEDICARE ==
[~2022-11-09] VITALS: Ht 157.5 cm; Wt 50.0 kg
[~2022-11-09 08:59] MED LIST changes: +AMIO200T67 PO; +AMLO2.5T5 PO; -ASPI-611 PO; +DULO30CA52 PO; -FERR-119 PO; -FURO20TA4 PO; -ISOS30TA84 PO; -KRIL500C PO; +LOPE2CAP PO; -LOSA25TA96 PO; +LOSA50TA64 PO; -METO-539 PO; -NITR0.4T SL; +PANT20TA18 PO; -POTA10TA37 PO; -PROC-8 PO; -SERT-153 PO; +WARF3TAB56 PO
[2022-11-09 09:35] LABS: ALANINE AMINOTRANSFERASE 38 U/L (12-78); ALBUMIN 3.5 G/DL (3.4-5.0); ALBUMIN/GLOBULIN RATIO 0.8 (1.1-1.5); ALKALINE PHOSPHATASE 123 IU/L (46-116); ANION GAP 8 (8-16); ASPARTATE AMINO TRANSFERASE 32 U/L (10-37); BASOPHILS # (AUTO) 0.1 X10'3 (0-0.2); BASOPHILS % (AUTO) 0.6 % (0-1); BILIRUBIN,TOTAL 0.8 MG/DL (0.1-1.0); BLOOD UREA NITROGEN 14 MG/DL (7-18); BUN/CREATININE RATIO 12.8 (10.0-20.0); CHLORIDE 104 MMOL/L (99-107); CREATININE 1.09 MG/DL (0.40-0.90); EOSINOPHILS # (AUTO) 0.2 X10'3 (0-0.9); EOSINOPHILS % (AUTO) 2.1 % (0-6); GLUCOSE 152 MG/DL (70-104); HEMATOCRIT 37.6 % (35.0-45.0); LYMPHOCYTES # (AUTO) 1.6 X10'3 (1.1-4.8); LYMPHOCYTES % (AUTO) 16.5 % (21-51); MEAN CORPUSCULAR HEMOGLOBIN 26.9 PG (27.0-31.0); MEAN PLATELET VOLUME 8.7 FL (7.4-10.4); MONOCYTES # (AUTO) 0.7 X10'3 (0-0.9); MONOCYTES % (AUTO) 7.8 % (2-12); PLATELET COUNT 265 X10'3 (140-440); POTASSIUM 3.6 MMOL/L (3.5-5.1); RED BLOOD COUNT 4.47 X10'6 (4.20-5.60); SODIUM 140 MMOL/L (135-145); TOTAL CARBON DIOXIDE 28.3 MMOL/L (24-32); TOTAL PROTEIN 7.7 G/DL (6.4-8.2); WHITE BLOOD COUNT 9.6 X10'3 (4.5-11.0); eGFR 49 ML/MIN
[2022-11-09] MEDS ORDERED: furosemide 10 MG/1 ML 10ml inj IV ONE (11:10)
[2022-11-09] MEDS ORDERED: nitroGLYCERIN 0.4mg SUBLingual tab SL PRN (11:10)
[2022-11-09] MEDS ORDERED: nitroGLYCERIN 1gm ointment UD TP ONE (11:10)
--- NOTE | 2022-11-09 13:54 | NUR ---
Patient resting comfortably and pending echo results at this time, patient stable and in NAD. Denies needs at this time.
[2022-11-09] MEDS ORDERED: FURO-150 PO (14:15)
[2022-11-09] MEDS ORDERED: POTA-192 PO (14:15)
[2022-11-09 14:49] VITALS: BP 114/75
== END 2022-11-09 14:50 | disposition home or self-care (01) ==
LOC: ER 08:59
DX: I11.0 Hypertensive heart disease with heart failure (principal); I50.9 Heart failure, unspecified; I38 Endocarditis, valve unspecified; E78.00 Pure hypercholesterolemia, unspecified; F12.90 Cannabis use, unspecified, uncomplicated
CPT/HCPCS: 36415; 71045; 80053; 83880; 84484; 85025; 93005; 93306; 96374; 99285; J1940